=== PATIENT | male | born 1985 | race Two or more races ===

== ENCOUNTER 2020-02-17 18:27 | Inpatient (IN) | payer MEDICAID ==
[~2020-02-17] VITALS: Ht 177.8 cm; Wt 104.8 kg
[~2020-02-17 18:27] MED LIST: ARIP10TA8 PO; DIPH50 PO; MIRT30 PO; SERT50TA12 PO
[2020-02-17] MEDS ORDERED: OLAN5TAB2 PO (19:07)
[2020-02-17 19:21] LABS: BASOPHILS % (AUTO) 0.8 % (0.0-2.0); HEMATOCRIT 48.6 % (41-53); HEMOGLOBIN 16.4 g/dL (13.5-17.5); LYMPHOCYTES % (AUTO) 27.5 % (22.0-44.0); MEAN CORPUSCULAR HEMOGLOBIN 29.7 pg (26.0-34.0); MEAN CORPUSCULAR HGB CONC 33.7 G/dL (31.0-37.0); MEAN CORPUSCULAR VOLUME 88 fL (80-100); MONOCYTES # (AUTO) 0.8 K/uL (0.1-1.0); MONOCYTES % (AUTO) 7.5 % (2.0-9.0); NEUTROPHILS # (AUTO) 6.8 K/uL (1.8-7.7); NEUTROPHILS % (AUTO) 61.2 % (40.0-70.0); PLATELET COUNT (AUTO) 259 K/uL (150-450); RED BLOOD CELL COUNT(AUTO) 5.53 MIL/uL (4.50-5.90); RED CELL DISTRIBUTION WIDTH 13.4 % (11.5-14.5)
[2020-02-17 19:40] LABS: ANION GAP 8 mmol/L (8-16); CALCIUM, TOTAL 9.1 mg/dL (8.8-10.5); CARBON DIOXIDE 28 mmol/L (22-29); CHLORIDE 103 mmol/L (98-107); CREATININE 1.07 mg/dL (0.60-1.30); GLOMERULAR FILTR. RATE CALC > 60 mL/min (>60); GLUCOSE,RANDOM 99 mg/dL (70-110); POTASSIUM 4.4 mmol/L (3.5-5.1); SODIUM SERUM 139 mmol/L (136-145); UREA NITROGEN, BLOOD 15 mg/dL (7-18)
[2020-02-17 19:47] LABS: ALANINE AMINOTRANSFERASE 39 U/L (12-78); ALBUMIN 3.8 g/dL (3.4-5.0); ALKALINE PHOSPHATASE 95 U/L (46-116); ASPARTATE AMINOTRANSFERASE 21 U/L (15-37); BILIRUBIN,TOTAL 0.3 mg/dL (0.1-1.0); TOTAL PROTEIN, SERUM 8.1 g/dL (6.4-8.2)
[2020-02-17 20:22] LABS: AMPHET/METH SCREEN,URINE POSITIVE (NEGATIVE); BARBITURATE SCREEN, URINE NEGATIVE (NEGATIVE); BENZODIAZEPINES SCREEN,URINE NEGATIVE (NEGATIVE); CANNABINOID SCREEN,URINE POSITIVE (NEGATIVE); COCAINE SCREEN,URINE NEGATIVE (NEGATIVE); METHADONE SCREEN, URINE NEGATIVE (NEGATIVE); OPIATE SCREEN,URINE NEGATIVE (NEGATIVE)
[2020-02-17 20:24] LABS: PHENCYCLIDINE SCREEN,URINE NEGATIVE (NEGATIVE)
[2020-02-17] MEDS ORDERED: LORazepam 1 MG TABLET PO ONE ×2 (21:45)
[2020-02-17] MEDS ORDERED: HALOPERIDOL 5 MG TABLET PO PRN (22:15)
[2020-02-17 23:10] LABS: APPEARANCE,URINE CLEAR (CLEAR); BILIRUBIN,URINE NEGATIVE (NEGATIVE); GLUCOSE, URINE (UA) NEGATIVE (NEGATIVE); KETONES,URINE NEGATIVE (NEGATIVE); LEUKOCYTE ESTERASE ,URINE NEGATIVE (NEGATIVE); NITRATE,URINE NEGATIVE (NEGATIVE); OCCULT BLOOD,URINE NEGATIVE (NEGATIVE); PH,URINE 5.5 (5.0-8.0); PROTEIN,URINE NEGATIVE (NEGATIVE); UROBILINOGEN,URINE 0.2 mg/dL (<=1.0)
[2020-02-18] MEDS: ZOLPIDEM TARTRATE 10 MG TABLET PO PRN ×2 (00:23→20:51)
[2020-02-18 01:13] VITALS: BP 128/68
[2020-02-18 06:35] LABS: CHOL/HDL RATIO 5.1 (4.2-7.3)
[2020-02-18] MEDS ORDERED: IBUPROFEN 400 MG TABLET PO PRN (09:00)
[2020-02-18] MEDS ORDERED: CloNIDine HCL 0.1 MG TABLET PO PRN (09:00)
[2020-02-18] MEDS ORDERED: GuaiFENesin/D-METHORPHAN [SUGAR-FREE] 200-20MG/10 ML SYRUP UDCUP PO PRN (09:00)
[2020-02-18] MEDS ORDERED: ALBUTEROL SULFATE HFA 90 MCG/PUFF 8 GM INHALER IH PRN (09:00)
[2020-02-18] MEDS ORDERED: DOCUSATE SODIUM 100 MG CAPSULE PO PRN (09:00)
[2020-02-18] MEDS ORDERED: ACETAMINOPHEN 325 MG TABLET PO PRN (09:00)
[2020-02-18] MEDS ORDERED: NICOTINE 14 MG/24 HOUR PATCH TD PRN (09:00)
[2020-02-18] MEDS ORDERED: PETROLATUM,WHITE 28 GM JELLY TP PRN (09:00)
[2020-02-18] MEDS ORDERED: MAG HYDROX/AL HYDROX/SIMETH ES 30 ML SUSPENSION UDCUP PO PRN (09:00)
[2020-02-18] MEDS ORDERED: MAGNESIUM HYDROXIDE SUSPENSION 30 ML UDCUP PO PRN (09:00)
[2020-02-18] MEDS ORDERED: ONDANSETRON HCL 4 MG TABLET PO PRN (09:00)
[2020-02-18] MEDS ORDERED: LOPERAMIDE HCL 2 MG CAPSULE PO PRN (09:00)
[2020-02-18] MEDS: LORazepam 2 MG TABLET PO PRN ×3 (09:16→19:36)
[2020-02-18 09:22] VITALS: BP 143/76
[2020-02-18] MEDS ORDERED: LORazepam 1 MG TABLET PO ONE (10:30)
[2020-02-18] MEDS: OLANZapine 5 MG TABLET PO SCH ×2 (10:41→20:06)
[2020-02-18 16:05] VITALS: BP 123/85
[2020-02-19 08:11] VITALS: BP 133/89
[2020-02-19] MEDS: LORazepam 2 MG TABLET PO PRN ×2 (10:32→17:37)
[2020-02-19] MEDS: OLANZapine 5 MG TABLET PO SCH ×2 (10:32→20:02)
[2020-02-19 17:46] VITALS: BP 133/85
[2020-02-19] MEDS: ZOLPIDEM TARTRATE 10 MG TABLET PO PRN (20:02)
[2020-02-20 08:23] VITALS: BP 136/84
[2020-02-20] MEDS: OLANZapine 5 MG TABLET PO SCH (08:23)
[2020-02-20] MEDS: LORazepam 2 MG TABLET PO PRN (11:41)
[2020-02-20] MEDS ORDERED: OLAN5TAB2 PO (12:23)
== END 2020-02-20 14:30 | disposition home or self-care (01) | DRG 750 ==
LOC: EMS 18:29 → 3EC 22:08
PROVIDERS: ADMIT Psychiatry & Neurology Psychiatry; ATTEND Psychiatry & Neurology Psychiatry
DX: F20.9 Schizophrenia, unspecified (principal); R45.851 Suicidal ideations; E78.5 Hyperlipidemia, unspecified; F15.10 Other stimulant abuse, uncomplicated; F12.90 Cannabis use, unspecified, uncomplicated; F41.9 Anxiety disorder, unspecified; R03.0 Elevated blood-pressure reading, without diagnosis of hypertension; Z91.19 Patient's noncompliance with other medical treatment and regimen; Z20.828 Contact with and (suspected) exposure to other viral communicable diseases
CPT/HCPCS: 87081; 87426; 93005; G0480; 36415-L1; 36415-TC; 71045-TC; 80061-TC; 81003-TC

== ENCOUNTER 2020-02-29 20:25 | Inpatient (IN) | payer MEDICAID ==
[~2020-02-29] VITALS: Ht 172.7 cm; Wt 97.8 kg
[~2020-02-29 20:25] MED LIST changes: -ARIP10TA8 PO; -DIPH50 PO; -MIRT30 PO; +OLAN5TAB2 PO; -SERT50TA12 PO
[2020-02-29 22:29] LABS: EOSINOPHILS % (AUTO) 0.1 % (1.0-6.0); LYMPHOCYTES # (AUTO) 1.6 K/uL (1.0-4.8)
[2020-02-29 22:36] LABS: BASOPHILS % (AUTO) 0.7 % (0.0-2.0); HEMOGLOBIN 15.6 g/dL (13.5-17.5); LYMPHOCYTES % (AUTO) 10.9 % (22.0-44.0); MEAN CORPUSCULAR HEMOGLOBIN 29.4 pg (26.0-34.0); MEAN CORPUSCULAR HGB CONC 33.9 G/dL (31.0-37.0); MEAN CORPUSCULAR VOLUME 87 fL (80-100); MONOCYTES # (AUTO) 1.2 K/uL (0.1-1.0); MONOCYTES % (AUTO) 8.1 % (2.0-9.0); NEUTROPHILS # (AUTO) 12.1 K/uL (1.8-7.7); NEUTROPHILS % (AUTO) 80.2 % (40.0-70.0); PLATELET COUNT (AUTO) 224 K/uL (150-450); RED BLOOD CELL COUNT(AUTO) 5.29 MIL/uL (4.50-5.90); RED CELL DISTRIBUTION WIDTH 13.7 % (11.5-14.5)
[2020-02-29 22:41] LABS: ANION GAP 7 mmol/L (8-16); CALCIUM, TOTAL 9.5 mg/dL (8.8-10.5); CARBON DIOXIDE 28 mmol/L (22-29); CHLORIDE 101 mmol/L (98-107); GLOMERULAR FILTR. RATE CALC 53 mL/min (>60); GLUCOSE,RANDOM 93 mg/dL (70-110); POTASSIUM 3.7 mmol/L (3.5-5.1); SODIUM SERUM 136 mmol/L (136-145); UREA NITROGEN, BLOOD 27 mg/dL (7-18)
[2020-02-29 22:41] LABS: AMPHET/METH SCREEN,URINE POSITIVE (NEGATIVE); BARBITURATE SCREEN, URINE NEGATIVE (NEGATIVE); BENZODIAZEPINES SCREEN,URINE NEGATIVE (NEGATIVE); CANNABINOID SCREEN,URINE POSITIVE (NEGATIVE); COCAINE SCREEN,URINE NEGATIVE (NEGATIVE); METHADONE SCREEN, URINE NEGATIVE (NEGATIVE); OPIATE SCREEN,URINE NEGATIVE (NEGATIVE)
[2020-02-29 22:43] LABS: PHENCYCLIDINE SCREEN,URINE NEGATIVE (NEGATIVE)
[2020-02-29 22:47] LABS: ALANINE AMINOTRANSFERASE 33 U/L (12-78); ALBUMIN 4.5 g/dL (3.4-5.0); ALKALINE PHOSPHATASE 89 U/L (46-116); ASPARTATE AMINOTRANSFERASE 21 U/L (15-37); BILIRUBIN,TOTAL 0.5 mg/dL (0.1-1.0)
[2020-02-29] MEDS ORDERED: LORazepam 1 MG TABLET PO ONE (23:15)
[2020-02-29] MEDS ORDERED: OLANZapine 5 MG TABLET PO ONE (23:30)
[2020-03-01] MEDS ORDERED: ZOLPIDEM TARTRATE 10 MG TABLET PO PRN (03:15)
[2020-03-01] MEDS ORDERED: LORazepam 2 MG TABLET PO PRN (03:15)
[2020-03-01] MEDS ORDERED: HALOPERIDOL 5 MG TABLET PO PRN (03:15)
[2020-03-01 04:48] LABS: APPEARANCE,URINE TURBID (CLEAR); BILIRUBIN,URINE NEGATIVE (NEGATIVE); GLUCOSE, URINE (UA) NEGATIVE (NEGATIVE); KETONES,URINE NEGATIVE (NEGATIVE); LEUKOCYTE ESTERASE ,URINE NEGATIVE (NEGATIVE); NITRATE,URINE NEGATIVE (NEGATIVE); OCCULT BLOOD,URINE NEGATIVE (NEGATIVE); PROTEIN,URINE TRACE (NEGATIVE); UROBILINOGEN,URINE 0.2 mg/dL (<=1.0)
[2020-03-01 04:54] LABS: BACTERIA,URINE Many /HPF (None Seen); RBC,URINE 0-2 /HPF (0-2); SQUAMOUS EPITHELIAL CELL,UR Few /LPF (None Seen); WBC,URINE 0-2 /HPF (0-5)
[2020-03-01 06:05] VITALS: BP 133/88
[2020-03-01] MEDS ORDERED: CloNIDine HCL 0.1 MG TABLET PO PRN (07:45)
[2020-03-01] MEDS ORDERED: PETROLATUM,WHITE 28 GM JELLY TP PRN (07:45)
[2020-03-01] MEDS ORDERED: ALBUTEROL SULFATE HFA 90 MCG/PUFF 8 GM INHALER IH PRN (07:45)
[2020-03-01] MEDS ORDERED: LOPERAMIDE HCL 2 MG CAPSULE PO PRN (07:45)
[2020-03-01] MEDS ORDERED: ACETAMINOPHEN 325 MG TABLET PO PRN (07:45)
[2020-03-01] MEDS ORDERED: DOCUSATE SODIUM 100 MG CAPSULE PO PRN (07:45)
[2020-03-01] MEDS ORDERED: NICOTINE 14 MG/24 HOUR PATCH TD PRN (07:45)
[2020-03-01] MEDS ORDERED: IBUPROFEN 400 MG TABLET PO PRN (07:45)
[2020-03-01] MEDS ORDERED: MAG HYDROX/AL HYDROX/SIMETH ES 30 ML SUSPENSION UDCUP PO PRN (07:45)
[2020-03-01] MEDS ORDERED: ONDANSETRON HCL 4 MG TABLET PO PRN (07:45)
[2020-03-01] MEDS ORDERED: GuaiFENesin/D-METHORPHAN [SUGAR-FREE] 200-20MG/10 ML SYRUP UDCUP PO PRN (07:45)
[2020-03-01] MEDS ORDERED: MAGNESIUM HYDROXIDE SUSPENSION 30 ML UDCUP PO PRN (07:45)
[2020-03-01] MEDS: LORazepam 2 MG TABLET PO PRN ×2 (07:56→16:22)
[2020-03-01 08:52] VITALS: BP 112/65
[2020-03-01 16:00] VITALS: BP 138/67
[2020-03-01] MEDS: OLANZapine 5 MG TABLET PO SCH ×2 (16:18→20:48)
[2020-03-02] MEDS: ZOLPIDEM TARTRATE 10 MG TABLET PO PRN ×2 (00:13→20:18)
[2020-03-02] MEDS: LORazepam 2 MG TABLET PO PRN ×3 (01:50→22:30)
[2020-03-02 08:12] VITALS: BP 134/72
[2020-03-02] MEDS: OLANZapine 5 MG TABLET PO SCH ×2 (08:48→20:18)
[2020-03-02 16:37] VITALS: BP 104/81
[2020-03-03 07:24] LABS: CHOL/HDL RATIO 5.1 (4.2-7.3)
[2020-03-03 10:00] VITALS: BP 131/77
[2020-03-03] MEDS: OLANZapine 5 MG TABLET PO SCH ×2 (10:49→20:42)
[2020-03-03] MEDS: LORazepam 2 MG TABLET PO PRN ×2 (11:27→15:56)
[2020-03-03] MEDS: ZOLPIDEM TARTRATE 10 MG TABLET PO PRN (20:42)
[2020-03-04] MEDS: LORazepam 2 MG TABLET PO PRN ×3 (05:11→20:10)
[2020-03-04 07:17] LABS: EOSINOPHILS % (AUTO) 2.8 % (1.0-6.0); HEMATOCRIT 42.8 % (41-53); HEMOGLOBIN 14.7 g/dL (13.5-17.5); LYMPHOCYTES # (AUTO) 2.3 K/uL (1.0-4.8); LYMPHOCYTES % (AUTO) 38.2 % (22.0-44.0); MEAN CORPUSCULAR HGB CONC 34.4 G/dL (31.0-37.0); MEAN CORPUSCULAR VOLUME 87 fL (80-100); MONOCYTES # (AUTO) 0.5 K/uL (0.1-1.0); MONOCYTES % (AUTO) 7.7 % (2.0-9.0); NEUTROPHILS % (AUTO) 50.3 % (40.0-70.0); PLATELET COUNT (AUTO) 167 K/uL (150-450); RED CELL DISTRIBUTION WIDTH 13.6 % (11.5-14.5)
[2020-03-04 07:43] LABS: ANION GAP 6 mmol/L (8-16); CALCIUM, TOTAL 8.7 mg/dL (8.8-10.5); CARBON DIOXIDE 27 mmol/L (22-29); CHLORIDE 106 mmol/L (98-107); CREATININE 0.93 mg/dL (0.60-1.30); GLOMERULAR FILTR. RATE CALC > 60 mL/min (>60); GLUCOSE,RANDOM 99 mg/dL (70-110); POTASSIUM 4.3 mmol/L (3.5-5.1); SODIUM SERUM 139 mmol/L (136-145); UREA NITROGEN, BLOOD 17 mg/dL (7-18)
[2020-03-04] MEDS: OLANZapine 5 MG TABLET PO SCH ×2 (08:26→20:10)
[2020-03-04 17:31] VITALS: BP 121/85
[2020-03-05] MEDS: OLANZapine 5 MG TABLET PO SCH ×2 (08:16→20:36)
[2020-03-05 08:30] VITALS: BP 109/55
[2020-03-05] MEDS: HALOPERIDOL 5 MG TABLET PO PRN ×2 (09:26→16:07)
[2020-03-05] MEDS: LORazepam 2 MG TABLET PO PRN ×2 (09:26→16:07)
[2020-03-05 16:13] VITALS: BP 110/60
[2020-03-06] MEDS: LORazepam 2 MG TABLET PO PRN ×4 (00:09→22:20)
[2020-03-06] MEDS: ZOLPIDEM TARTRATE 10 MG TABLET PO PRN ×2 (00:09→21:22)
[2020-03-06] MEDS: OLANZapine 5 MG TABLET PO SCH ×2 (07:51→19:57)
[2020-03-06 08:00] VITALS: BP 150/91
[2020-03-06 20:11] VITALS: BP 131/81
[2020-03-07 08:00] VITALS: BP 112/69
[2020-03-07] MEDS: OLANZapine 5 MG TABLET PO SCH ×2 (08:37→20:39)
[2020-03-07] MEDS: LORazepam 2 MG TABLET PO PRN ×3 (08:39→22:46)
[2020-03-07 16:18] VITALS: BP 115/67
[2020-03-07] MEDS: ZOLPIDEM TARTRATE 10 MG TABLET PO PRN (21:34)
[2020-03-08 08:15] VITALS: BP 110/62
[2020-03-08] MEDS: OLANZapine 5 MG TABLET PO SCH (08:32)
[2020-03-08] MEDS: LORazepam 2 MG TABLET PO PRN ×3 (08:32→17:53)
[2020-03-08 16:00] VITALS: BP 135/99
== END 2020-03-08 18:45 | disposition short-term general hospital (02) | DRG 750 ==
LOC: EMS 20:25 → 3EI 03-01 03:14 → 3EC 03-01 05:58 → 3EI 03-07 20:40 → 3EC 03-07 20:41
PROVIDERS: ADMIT Psychiatry & Neurology Psychiatry; ATTEND Psychiatry & Neurology Psychiatry
DX: F25.1 Schizoaffective disorder, depressive type (principal); R45.851 Suicidal ideations; N17.9 Acute kidney failure, unspecified; D72.829 Elevated white blood cell count, unspecified; E78.5 Hyperlipidemia, unspecified; F15.10 Other stimulant abuse, uncomplicated; F12.10 Cannabis abuse, uncomplicated; Z20.828 Contact with and (suspected) exposure to other viral communicable diseases; Z59.0 Homelessness; Z91.19 Patient's noncompliance with other medical treatment and regimen
CPT/HCPCS: 87081; 87086; G0480